=== PATIENT | female | born 1965 | race Caucasian/White ===

== ENCOUNTER 2018-07-26 15:41 | Emergency (ER) | payer BC ==
[2018-07-26] MEDS ORDERED: IPRATROPIUM/ALBUTEROL 3 ML NEB INH STA (16:05)
[2018-07-26] MEDS ORDERED: DEXAMETHASONE 10 MG/ML VIAL PO STA (16:05)
--- NOTE | 2018-07-26 16:07 | ED Physician Documentation ---
PD HPI DYSPNEA - Stated complaint Stated Complaint: ASTHMATIC SX - Chief complaint Chief Complaint: Resp - History obtained from History obtained from: Patient - History of Present Illness Timing - onset: How many weeks ago (2) Timing - onset during: Light activity Timing - duration: Weeks (2) Timing - details: Gradual onset, Still present Inciting event(s): Allergic rxn/anaphylaxis Improved by: Inhaler/neb Worsened by: Exertion, Coughing Associated symptoms: Cough, Wheezing Similar symptoms before: Diagnosis (asthma) Recently seen: Not recently seen - Additional information Additional information: 53-year-old female with mild intermittent asthma who does not use a maintenance inhaler has developed worsening of her asthma over the past 2 weeks. She has previously had attacks like this that require increased use of her rescue inhaler for several days this is persisted for 2 weeks and she is now having to wake up in the middle the night to use her inhaler. She last had a course of prednisone about a year ago. She denies any production of sputum she denies any fever she denies feeling ill associated with this. Review of Systems Constitutional: denies: Fever, Chills, Myalgias Eyes: denies: Decreased vision Ears: denies: Ear pain Nose: denies: Rhinorrhea / runny nose, Congestion Throat: denies: Sore throat Cardiac: denies: Chest pain / pressure, Palpitations Respiratory: reports: Dyspnea, Cough, Wheezing GI: denies: Abdominal Pain, Nausea, Vomiting : denies: Dysuria, Frequency PD PAST MEDICAL HISTORY - Present Medications Home Medications: Ambulatory Orders Medication Instructions Recorded Confirmed Albuterol Sulfate [Proair Hfa 1 - 2 puffs PO QID PRN 07/26/18 07/26/18 Inhaler] Levothyroxine Sodium [Synthroid] 1 tab PO DAILY 07/26/18 07/26/18 predniSONE [Deltasone] 10 mg PO ONCE #26 tablet 07/26/18 - Allergies Allergies/Adverse Reactions: Allergies Allergy/AdvReac Type Severity Reaction Status Date / Time No Known Drug Allergies Allergy Verified 07/26/18 15:49 PD ED PE NORMAL - Vitals Vital signs reviewed: Yes (hypertensive ) - General General: Alert and oriented X 3, No acute distress, Well developed/nourished - HEENT HEENT: Atraumatic, PERRL, EOMI, Ears normal, Moist mucous membranes, Pharynx benign, Dentition benign - Neck Neck: Supple, no meningeal sign, No bony TTP - Cardiac Cardiac: RRR, No murmur - Respiratory Respiratory: No respiratory distress, Other (wheezes throughout with diminished breath sounds. ) - Abdomen Abdomen: Soft, Non tender - Back Back: No CVA TTP, No spinal TTP - Derm Derm: Normal color, Warm and dry, No rash - Extremities Extremities: No deformity, No edema - Neuro Neuro: Alert and oriented X 3, cook chief 2-12 intact, No motor deficit, No sensory deficit, Normal speech Eye Opening: Spontaneous Motor: Obeys Commands Verbal: Oriented GCS Score: 15 - Psych Psych: Normal mood, Normal affect Results - Vitals Vitals: Vital Signs - 24 hr 07/26/18 07/26/18 07/26/18 15:46 16:19 16:23 Temperature 37.0 C 36.1 C L Heart Rate 79 76 68 Respiratory 20 26 H 20 Rate Blood Pressure 140/94 H 140/104 H O2 Saturation 97 97 07/26/18 16:31 Temperature Heart Rate 87 Respiratory 22 Rate Blood Pressure 137/94 H O2 Saturation 98 Oxygen O2 Source Room air PD MEDICAL DECISION MAKING - ED course Complexity details: considered differential, d/w patient ED course: 53-year-old female with an acute exacerbation of her asthma is administered dexamethasone 10 mg orally and given a DuoNeb treatment. We will place her on a course of prednisone. She does not appear to have any form of infection today. Departure - Departure Disposition: 01 Home, Self Care Clinical Impression: Asthma exacerbation Qualifiers: Asthma severity: mild Asthma persistence: intermittent Qualified Code(s): J45.21 - Mild intermittent asthma with (acute) exacerbation Condition: Stable Instructions: ED Reactive Airway Disease Follow-Up: Your, doctor [Other] Prescriptions: predniSONE [Deltasone] 10 mg PO ONCE #26 tablet
[2018-07-26] MEDS ORDERED: CHERRY SYRUP 10 ML UDC PO ONE (16:28)
[2018-07-26 16:32] VITALS: BP 137/94
== END 2018-07-26 16:50 | disposition home or self-care (01) ==
LOC: ED 15:41
DX: J45.21 Mild intermittent asthma with (acute) exacerbation (principal)
CPT/HCPCS: 94150; 94640; 99282; 99283